=== PATIENT | female | born 1960 | race Caucasian/White ===

== ENCOUNTER 2019-08-19 16:19 | Outpatient (CLI) | payer OTHER, MEDICARE, BC, SELFPAY ==
--- NOTE | ~2019-08-19 | MM_ITS ---
EXAMINATION: MM screening [facility] BI w lesly HISTORY: Screening mammogram TECHNIQUE: Craniocaudal and mediolateral oblique 3-D tomosynthesis images were obtained and synthetic 2-D images were generated. CAD analysis was submitted and interpreted. COMPARISON: , 06/18/2017, 11/03/2015 bilateral digital screening mammogram examinations BREAST PARENCHYMAL COMPOSITION: The breasts are heterogeneously dense, which may obscure small masses . FINDINGS: There is no evidence of suspicious mass, calcification, or architectural distortion to sugg est malignancy in either breast. There has been no suspicious interval change. IMPRESSION: 1. No mammographic evidence of malignancy. 2. Recommend routine screening mammography in one year. BI-RADS Category 1: Negative Reviewed, dictated and finalized at location A.
== END 2019-08-19 16:20 | disposition home or self-care (01) ==
PROVIDERS: PCP Internal Medicine; Visit Provider Obstetrics & Gynecology
DX: Z12.31 Encounter for screening mammogram for malignant neoplasm of breast (principal)
CPT/HCPCS: 77063; 77067

== ENCOUNTER → 2019-11-11 14:55 | Outpatient (REF) | payer OTHER, MEDICARE, BC, SELFPAY | LOC: ANHLAB 14:55 | PROVIDERS: PCP Internal Medicine; Visit Provider Nurse Practitioner | DX: D49.2 Neoplasm of unspecified behavior of bone, soft tissue, and skin (principal); L57.0 Actinic keratosis | CPT/HCPCS: 88305 ==

== ENCOUNTER → 2019-11-29 13:43 | Outpatient (REF) | payer OTHER, MEDICARE, BC, SELFPAY | LOC: ANHLAB 13:43 | PROVIDERS: PCP Internal Medicine; Visit Provider Nurse Practitioner | DX: D49.2 Neoplasm of unspecified behavior of bone, soft tissue, and skin (principal) | CPT/HCPCS: 88304; 88305 ==

== ENCOUNTER 2020-02-02 01:12 | Outpatient (CLI) | payer MEDICARE, BC, SELFPAY ==
[2020-02-02 18:19] LABS: SARS-CoV-2 RNA PCR Negative
== END 2020-02-02 01:13 | disposition home or self-care (01) ==
LOC: ANHCOVIDDT 01:12
PROVIDERS: PCP Internal Medicine; Visit Provider Internal Medicine Gastroenterology
DX: Z01.812 Encounter for preprocedural laboratory examination (principal); Z20.828 Contact with and (suspected) exposure to other viral communicable diseases
CPT/HCPCS: 87635; C9803; U0003

== ENCOUNTER 2020-02-04 02:13 | Day surgery (SDC) | payer MEDICARE, SELFPAY ==
[2020-01-27 11:23] VITALS: BMI 21.9
[2020-02-04 10:32] VITALS: BP 149/69; PULSE 104; RESP 18; TEMP 36.7; O2SAT 100; BMI 22.5
--- NOTE | 2020-02-04 10:47 | WPDANESEPPF ---
Anes - Initial Pre Proc Eval Procedure: Operation Date: 02/04/20 11:45 Proposed Procedures p Esophagogastroduodenoscopy & Colonoscopy - Dirk Carter MD Date/Time: 02/04/20 10:47 Surgeon: Dirk Carter MD Pre Op Diagnosis: Reflux,Rectal Pain Patient Data Age: 59 Gender: F Height: 5 ft 4 in Weight: 59.6 kg Last Vital Signs Temp 98.0 F 02/04/20 10:32 Pulse 104 H 02/04/20 10:32 Resp 18 02/04/20 10:32 BP 149/69 H 02/04/20 10:32 Pulse Ox 100 02/04/20 10:32 Allergies Allergy/AdvReac Type Severity Reaction Status Date / Time aspirin Allergy Unknown Vomiting Verified 02/04/20 10:43 cephalexin Allergy Unknown Nausea and Verified 02/04/20 10:43 Vomiting codeine Allergy Unknown Vomiting Verified 02/04/20 10:43 morphine Allergy Unknown Vomiting Verified 02/04/20 10:43 Home Medications Medication Instructions Recorded Confirmed Type cholecalciferol (vitamin D3) 50 50 mcg PO BID cap 10/01/19 01/27/20 History mcg (2,000 unit) capsule oxycodone-acetaminophen 5 mg-325 1 tablet PO Q6H PRN 10/01/19 01/27/20 History mg tablet levothyroxine 100 mcg tablet 100 mcg PO DAILY #90 tablet 10/13/19 01/27/20 Rx methadone 5 mg tablet 5 mg PO BID tablet 11/11/19 01/27/20 History omeprazole 20 mg capsule,delayed 20 mg PO BID cap 11/11/19 01/27/20 History release topiramate 25 mg tablet 25 mg PO BID 11/11/19 01/27/20 History zolpidem 10 mg tablet 10 mg PO DAILY PRN tablet 11/19/19 01/27/20 History ondansetron HCl 4 mg tablet 4 mg PO Q6H PRN #10 tablet 12/31/19 01/27/20 Rx Patient hx anesthesia problems: none Family hx anesthesia problems: none PMFSH Past Medical History Medical History (Updated 12/31/19 @ 09:23 by Dirk Carter MD) GERD (gastroesophageal reflux disease) Intestinal metaplasia of gastric cardia LPRD (laryngopharyngeal reflux disease) Rectal pain Surgical History Surgical History History of appendectomy 1974 History of cholecystectomy 1997 History of colon resection 1998 History of hysterectomy 1985 History of spinal fusion 1998 & 1999 Hx of removal of ovary 1986 Social History Social History Smoking status: Never smoker Alcohol intake: never Gender identity (if verbalized by the patient): Female Sexual Orientation (if Verbalized by the Patient): Straight or Heterosexual Anes - Eval Final PreProcedure Day of Procedure 02/04/20 10:47 Patient weight: normal Heart: regular rate and rhythm Lungs: clear to auscultation Airway: Mallampati scale class II Neurological: alert and oriented Last oral intake: >/= 8 hours ASA classification: II Emergent: no Anesthetic plan: proceed Anesthesia type and monitoring: general GIVS and standard monitoring Informed Consent: The patient's anesthetic plan and its attendant risks and benefits were discussed with the patient/family/POA. Questions were solicited and answers provided to the satisfaction of the patient/family/POA.
[2020-02-04] MEDS: LACTATED RINGERS 1,000 ML 150 ML IV CONT (11:01)
--- NOTE | 2020-02-04 11:59 | PM.HPGS ---
History of Present Illness History of Present Illness Consent: Risks, benefits, and alternatives have been discussed and questions answered. Patient agrees to proceed with procedure. Chief complaint: Reflux,Rectal Pain Narrative: Elsy No is a 59 year old female with rectal pain, also GERD on ppi with history of gastric metaplasia Review of Systems Constitutional: Constitutional: Denies headache(s) and Denies weakness Eyes: Eyes: Denies blurry vision ENT: Reports Normal hearing present, Denies headache(s) and Denies neck pain Cardiovascular: Cardiovascular: Denies chest pain and Denies dyspnea Respiratory: Respiratory: Denies dyspnea Gastrointestinal: Gastrointestinal: Reports no additional gastrointestinal complaints Genitourinary: Genitourinary: Denies dysuria Musculoskeletal: Musculoskeletal: Denies neck pain Integumentary/Breasts: Skin/Breast: Denies dry skin Neurologic: Reports Normal hearing present, Denies headache(s) and Denies weakness Psychiatric: Psychiatric: Denies anxiety Endocrine: Endocrine: Denies change in body appearance Hematologic/Lymphatic: Hematologic/Lymphatic: Denies easy bleeding Allergic/Immunologic: Allergic/Immunologic: Denies urticaria PMFSH Past Medical History Medical History (Updated 12/31/19 @ 09:23 by Dirk Carter MD) GERD (gastroesophageal reflux disease) Intestinal metaplasia of gastric cardia LPRD (laryngopharyngeal reflux disease) Rectal pain Surgical History Surgical History History of appendectomy 1974 History of cholecystectomy 1997 History of colon resection 1998 History of hysterectomy 1984 History of spinal fusion 1998 & 1999 Hx of removal of ovary 1986 Social History Social History Smoking status: Never smoker Alcohol intake: never Gender identity (if verbalized by the patient): Female Sexual Orientation (if Verbalized by the Patient): Straight or Heterosexual Meds Home Medications and Allergies Home Medications Medication Instructions Recorded Confirmed Type cholecalciferol (vitamin D3) 50 50 mcg PO BID cap 10/01/19 02/04/20 History mcg (2,000 unit) capsule oxycodone-acetaminophen 5 mg-325 1 tablet PO Q6H PRN 10/01/19 02/04/20 History mg tablet levothyroxine 100 mcg tablet 100 mcg PO DAILY #90 tablet 10/13/19 02/04/20 Rx methadone 5 mg tablet 5 mg PO BID tablet 11/11/19 02/04/20 History omeprazole 20 mg capsule,delayed 20 mg PO BID cap 11/11/19 02/04/20 History release topiramate 25 mg tablet 25 mg PO BID 11/11/19 02/04/20 History zolpidem 10 mg tablet 10 mg PO DAILY PRN tablet 11/19/19 02/04/20 History ondansetron HCl 4 mg tablet 4 mg PO Q6H PRN #10 tablet 12/31/19 02/04/20 Rx Allergies Allergy/AdvReac Type Severity Reaction Status Date / Time aspirin Allergy Unknown Vomiting Verified 02/04/20 10:43 cephalexin Allergy Unknown Nausea and Verified 02/04/20 10:43 Vomiting codeine Allergy Unknown Vomiting Verified 02/04/20 10:43 morphine Allergy Unknown Vomiting Verified 02/04/20 10:43 Vital Signs Vital Signs - 24 hr 02/04/20 10:32 Temperature 98.0 F Pulse Rate 104 H Respiratory Rate 18 Blood Pressure 149/69 H Pulse Oximetry 100 Exam Const: General: comfortable and no acute distress HENMT: General nose exam: Normal nares present Eyes: General: appearance normal, both eyes and all related structures Neck: Neck: no JVD Resp: Auscultation: clear to auscultation bilaterally Cardio: Rate: regular rate Rhythm: regular rhythm GI: Inspection: non-distended GI Palp: Yes Soft to palpation Skin: General skin exam: normal color Neuro: General: gait normal Speech: normal speech Extrem: General: normal to inspection Psych: Mental Status: mental status grossly normal Assessment and Plan Assessment and plan (1) Intestinal metaplasia of ga
[2020-02-04 12:29] VITALS: BP 107/59; PULSE 87; RESP 20; O2SAT 100
[2020-02-04 12:39] VITALS: BP 108/60; PULSE 80; RESP 19; O2SAT 100
[2020-02-04 12:49] VITALS: BP 112/67; PULSE 85; RESP 22; O2SAT 100
== END 2020-02-04 13:15 | disposition home or self-care (01) ==
PROVIDERS: PCP Internal Medicine; Visit Provider Internal Medicine Gastroenterology
PROC: 0DJ08ZZ Inspection of Upper Intestinal Tract, Via Natural or Artificial Opening Endoscopic (ICD-10-PCS; CPT 43235; principal; 2020-02-04 11:45)
DX: K21.9 Gastro-esophageal reflux disease without esophagitis (principal); K62.89 Other specified diseases of anus and rectum; K31.89 Other diseases of stomach and duodenum; K44.9 Diaphragmatic hernia without obstruction or gangrene; K29.70 Gastritis, unspecified, without bleeding; K57.30 Diverticulosis of large intestine without perforation or abscess without bleeding; K29.50 Unspecified chronic gastritis without bleeding
CPT/HCPCS: 43239; 45378; 88305; J2001; J2704; J7120

== ENCOUNTER 2021-04-07 22:27 | Emergency (ER) | payer MEDICARE, BC, SELFPAY ==
[2021-04-07 22:30] VITALS: BP 150/83; PULSE 113; RESP 20; TEMP 35.8; O2SAT 100
[2021-04-07 22:53] VITALS: TEMP 36.7
[2021-04-07 23:08] VITALS: BP 135/84; PULSE 105; RESP 18; O2SAT 96
--- NOTE | 2021-04-07 23:08 | ED.EYEPROB ---
HPI - Eye Problem General Chief complaint: Eye Problems Stated complaint: right eye problems Time Seen by Provider: 04/07/21 22:48 History of Present Illness HPI Narrative: Patient is a 60-year-old female who presents ER with sensation of blood in her vision on the right side. Acute onset at 7:00 PM. Blood in vision has increased and she sees objects floating. No pain to the eye. Denies any trauma. No sneezing or coughing. She did not rub her eye. Patient does not take any blood thinners or antiplatelet agents. She does wear glasses. Denies flashers. She does see stuff floating in her vision. She is not missing a field of vision. Related Data Home Medications Medication Instructions Recorded Confirmed cholecalciferol (vitamin D3) 50 50 mcg PO BID cap 10/01/19 10/09/20 mcg (2,000 unit) capsule oxycodone-acetaminophen 5 mg-325 1 tablet PO Q6H PRN 10/01/19 10/09/20 mg tablet methadone 5 mg tablet 5 mg PO BID tablet 11/11/19 10/09/20 omeprazole 20 mg capsule,delayed 20 mg PO BID cap 11/11/19 10/09/20 release topiramate 25 mg tablet 50 mg PO BID tablet 03/31/20 10/09/20 Allergies Allergy/AdvReac Type Severity Reaction Status Date / Time aspirin Allergy Unknown Vomiting Verified 04/07/21 22:28 cephalexin Allergy Unknown Nausea and Verified 04/07/21 22:28 Vomiting codeine Allergy Unknown Vomiting Verified 04/07/21 22:28 morphine Allergy Unknown Vomiting Verified 04/07/21 22:28 Review of Systems Review of Systems: All systems reviewed & are unremarkable except as noted in HPI and below Constitutional: Constitutional: Denies chills and Denies fever(s) Eyes: Eyes: Reports change in vision and Denies photophobia Comments: Floaters and red vision in right eye. ENT: Denies dizziness and Denies nasal congestion Neurologic: Denies headache(s), Denies focal weakness and Denies numbness PMFSH Past Medical History Medical History GERD (gastroesophageal reflux disease) Intestinal metaplasia of gastric cardia LPRD (laryngopharyngeal reflux disease) Rectal pain Surgical History Surgical History History of appendectomy 1975 History of cholecystectomy 1997 History of colon resection 1998 History of hysterectomy 1985 History of spinal fusion 1998 & 1999 Hx of removal of ovary 1986 Family History Family History Other Diabetes mellitus Family history of cardiovascular disease Family history of malignant neoplasm Social History Social History Smoking status: Never smoker Alcohol intake: never Gender identity (if verbalized by the patient): Female Sexual Orientation (if Verbalized by the Patient): Straight or Heterosexual Exam Narrative: GENERAL: Well-appearing, well-nourished, and in no acute distress. HEAD: Normocephalic, atraumatic. EYES: PERRLA and EOMI. right side intraocular pressure of 21 mmHg. Funduscopic exam the right eye shows hemorrhage and present of clot formation over the medial aspect of the posterior eye. Normal-appearing funduscopic exam of the left eye. These are nondilated exams. Visual acuity with correction with 20/20 vision in left eye and 20/25 vision in right eye. NEURO: Alert and oriented x3. PSYCH: Normal mood and affect. Course Course Emergency Course: Discussed with ophthalmology at [facility]. They would like patient to follow-up in clinic on 04/09/2021. They have given all contact information. They also report that they would like patient to contact them tomorrow if vision is worsening so they can evaluate her in the ER at [facility]. Patient is verbalized understanding of the treatment plan. Vital Signs Vital signs: Vital Signs Temperature 96.5 F L 04/07/21 22:30 Pulse Rate 113 H 04/07/21 22:30 Respi
[2021-04-08 00:22] VITALS: BP 129/67; PULSE 99; RESP 18; O2SAT 96
== END 2021-04-08 00:25 | disposition home or self-care (01) ==
PROVIDERS: Emergency Provider Emergency Medicine; PCP Internal Medicine
DX: H43.11 Vitreous hemorrhage, right eye (principal); K21.9 Gastro-esophageal reflux disease without esophagitis; K31.A0 Gastric intestinal metaplasia, unspecified; Z98.1 Arthrodesis status
CPT/HCPCS: 99282

== ENCOUNTER 2021-05-11 08:56 | Outpatient (CLI) | payer MEDICARE, BC, SELFPAY ==
--- NOTE | ~2021-05-11 | US_ITS ---
US abdomen limited INDICATION: Right upper quadrant pain PROCEDURE: Realtime right upper abdominal ultrasound. COMPARISON: No prior studies for comparison. FINDINGS: The pancreas is normal without focal mass or pancreatic ductal dilation. Liver echotexture is normal without focal mass or intrahepatic biliary dilatation. There is normal directional flow i n the portal vein. Gallbladder is surgically absent. Common bile duct measures 4.5 mm. No sonographic Ramos's sign. IMPRESSION: 1: Unremarkable limited abdominal ultrasound postcholecystectomy Reviewed, dictated and finalized at location A. 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
== END 2021-05-11 08:57 | disposition home or self-care (01) ==
LOC: ANHIMG 08:59
PROVIDERS: PCP Internal Medicine; Visit Provider Nurse Practitioner
DX: R10.11 Right upper quadrant pain (principal)
CPT/HCPCS: 76705

== ENCOUNTER 2021-08-30 16:45 | Outpatient (CLI) | payer MEDICARE, BC, SELFPAY ==
--- NOTE | ~2021-08-30 | MM_ITS ---
EXAMINATION: MM screening [facility] BI w lesly HISTORY: Screening TECHNIQUE: Craniocaudal and mediolateral oblique 3-D tomosynthesis images were obtained and synthetic 2-D images were generated. CAD analysis was submitted and interpreted. COMPARISON: Comparison to multiple prior studies sequentially, with oldest reviewed study dated 05/09. BREAST PARENCHYMAL COMPOSITION: There are scattered areas of fibroglandular density. FINDINGS: There is no evidence of suspicious mass, calcification, or architectural distortion to sugg est malignancy in either breast. There has been no suspicious interval change. IMPRESSION: 1. No mammographic evidence of malignancy. 2. Recommend routine screening mammography in one year. BI-RADS Category 1: Negative Reviewed, dictated and finalized at location A.
--- NOTE | ~2021-08-30 | DEXA_ITS ---
Bone Density Report Name: PRISCA BECKER Age: 60 Sex: Female Ethnicity: White Date of : 1960 Indication: postmenopausal; inflammatory bowel disease; hysterectomy; Referring Provider: Dolores Reeves Study: Bone densitometry was performed. Exam Date: August 30, 2021 Accession number: [id number] Bone Density: Region BMD T-score Z-score Classification AP Spine (L1-L4) 0.962 -0.8 0.8 Normal Femoral Neck (Left) 0.736 -1.0 0.4 Normal Total Hip (Left) 0.868 -0.6 0.5 Normal Total Hip Bilateral Avg 0.923 -0.2 1.0 Normal Femoral Neck (Right) 0.729 -1.1 0.3 Osteopenia Total Hip (Right) 0.977 0.3 1.4 Normal World Health Organization criteria for BMD impression classify patients as: Normal (T-score at or above -1.0), Osteopenia (T-score between -1.0 and -2.5), or Osteoporosis (T-score at or below -2.5). 10-year Fracture Risk(1): Major Osteoporotic Fracture 7.5% Hip Fracture 0.5% Reported Risk Factors: [place] (), Neck BMD=0.729, BMI=23.2 (1) FRAX(R) Version 3.08. Fracture probability calculated for an untreated patient. Fracture probability may be lower if the patient has received treatment. Previous Exams: Region Exam Age BMD T-score BMD Change BMD Change Date g/cm2 vs Baseline vs Previous AP Spine(L1-L4) 08/30/2021 60 0.962 -0.8 -0.074(-7.2%)# -0.039(-3.9%)* 05/20/2012 51 1.001 -0.4 -0.036(-3.4%)# -0.036(-3.4%)# 05/01/2010 49 1.036 -0.1 Total Hip(Left) 08/30/2021 60 0.868 -0.6 -0.007(-0.9%)# 0.026(3.1%)# 05/24/2016 55 0.842 -0.8 -0.034(-3.8%)# 0.016(2.0%)# 05/20/2012 51 0.826 -1.0 -0.050(-5.7%)# -0.050(-5.7%)# 05/01/2010 49 0.876 -0.5 Total Hip(Right) 08/30/2021 60 0.977 0.3 0.072(8.0%)# 0.147(17.7%)# 05/24/2016 55 0.831 -0.9 -0.074(-8.2%)# -0.051(-5.8%)# 05/20/2012 51 0.882 -0.5 -0.023(-2.6%)# -0.023(-2.6%)# 05/01/2010 49 0.905 -0.3 *Denotes significance at 95% confidence level, LSC for AP Spine = 0.022 g/cm2, LSC for Total Hip = 0.027 g/cm2 Clinical Information Provided by Patient: Has used the following medications: Vitamin D, Calcium Has the following medical conditions: Inflammatory bowel diseases, Hysterectomy Patient maximum height was 64 No regular weight bearing exercise Onset of menses at age 14 Number of children 2 Impression: The patient has low bone mass, based on the Right Femoral Neck T-score. The patient has an estimated ten-year ri
== END 2021-08-30 16:46 | disposition home or self-care (01) ==
PROVIDERS: PCP Internal Medicine; Visit Provider Nurse Practitioner
DX: Z12.31 Encounter for screening mammogram for malignant neoplasm of breast (principal); Z78.0 Asymptomatic menopausal state; M85.851 Other specified disorders of bone density and structure, right thigh
CPT/HCPCS: 77063; 77067; 77080

== ENCOUNTER 2022-11-07 14:30 | Outpatient (CLI) | payer MEDICARE, BC, SELFPAY ==
--- NOTE | ~2022-11-07 | MM_ITS ---
EXAMINATION: MM screening neena BI w lesly HISTORY: Screening mammogram TECHNIQUE: Craniocaudal and mediolateral oblique 3-D tomosynthesis images were obtained and synthetic 2-D images were generated. CAD analysis was submitted and interpreted. COMPARISON: 08/26/2021, 08/19/2019, 07/29/2018 bilateral screening mammogram examinations BREAST PARENCHYMAL COMPOSITION: The breasts are heterogeneously dense, which may obscure small masses . FINDINGS: There is no evidence of suspicious mass, calcification, or architectural distortion to sugg est malignancy in either breast. There has been no suspicious interval change. IMPRESSION: 1. No mammographic evidence of malignancy. 2. Recommend routine screening mammography in one year. BI-RADS Category 1: Negative Reviewed, dictated and finalized at location A.
== END 2022-11-07 14:31 | disposition home or self-care (01) ==
PROVIDERS: PCP Internal Medicine; Visit Provider Internal Medicine
DX: Z12.31 Encounter for screening mammogram for malignant neoplasm of breast (principal)
CPT/HCPCS: 77063; 77067

== ENCOUNTER 2022-11-13 21:49 | Emergency (ER) | payer MEDICARE, BC, SELFPAY ==
[2022-11-13 21:52] VITALS: BP 151/75; PULSE 80; RESP 18; TEMP 36.3; O2SAT 100
--- NOTE | 2022-11-14 00:30 | ED.EYEPROB ---
HPI - Eye Problem General Chief complaint: Eye Problems <AUBRIE Hall Last Filed: 11/14/22 03:11> Stated complaint: R eye pain <AUBRIE Hall Last Filed: 11/14/22 03:11> Time Seen by Provider: 11/14/22 00:05 <AUBRIE Hall Last Filed: 11/14/22 03:11> Source: patient <AUBRIE Hall Last Filed: 11/14/22 03:11> Mode of arrival: ambulatory <AUBRIE Hall Filed: 11/14/22 03:11> Limitations: no limitations <AUBRIE Hall Last Filed: 11/14/22 03:11> History of Present Illness HPI Narrative: Patient is a 61-year-old female who presents to the ED with report of right eye discomfort. Patient reports she was driving around 9:30 PM when she suddenly developed a burning and stinging pain in her right eye. She also reported having increased tearing at that time, a dark anderson discharge from her eye, and a sharp pain behind her eye. She then presented to the ED. She denied any blurry vision, double vision, vision loss, visual field deficits. Patient reports around 1.5 years ago she was being monitored for potential retinal detachment with fluid ophthalmology. She did not have an actual detachment and never required surgery. She did have eye surgery (radial keratotomy) in her remote history. Patient denies any other concerns at this time. <AUBRIE Hall Last Filed: 11/14/22 03:11> Related Data Home medications: Home Medications Medication Instructions Recorded Confirmed cholecalciferol (vitamin D3) 50 50 mcg PO BID 10/01/19 08/15/22 mcg (2,000 unit) capsule oxycodone-acetaminophen 5 mg-325 1 tablet PO Q6H PRN Pain 10/01/19 08/15/22 mg tablet (Percocet) methadone 5 mg tablet 5 mg PO BID 11/11/19 08/15/22 topiramate 25 mg tablet (Topamax) 50 mg PO BID 03/31/20 08/15/22 magnesium 30 mg tablet 30 mg PO DAILY 04/26/21 08/15/22 <Neelam Dee PA-C - Last Filed: 11/14/22 03:11> Allergies/adverse reactions: Allergies Allergy/AdvReac Type Severity Reaction Status Date / Time aspirin Allergy Unknown Vomiting Verified 11/13/22 22:35 cephalexin Allergy Unknown Nausea and Verified 11/13/22 22:35 Vomiting codeine Allergy Unknown Vomiting Verified 11/13/22 22:35 morphine Allergy Unknown Vomiting Verified 11/13/22 22:35 <Neelam Dee PA-C - Last Filed: 11/14/22 03:11> Review of Systems Review of Systems: CONSTITUTIONAL: Denies fever, chills, or sweats. EYES: See HPI. NEUROLOGIC: Denies headache, numbness, or weakness. <Neelam Dee PA-C - Last Filed: 11/14/22 03:11> All systems reviewed & are unremarkable except as noted in HPI and below <Neelam Dee PA-C - Last Filed: 11/14/22 03:11> [facility] Past Medical History Medical History: Medical History GERD (gastroesophageal reflux disease) Intestinal metaplasia of gastric cardia LPRD (laryngopharyngeal reflux disease) Rectal pain Rupture of blood vessel <Neelam Dee PA-C - Last Filed: 11/14/22 03:11> Surgical History Surgical History: Surgical History History of appendectomy 1975 History of cholecystectomy 1998 History of colon resection 1999 History of hysterectomy 1985 History of spinal fusion 1998 & 1999 Hx of removal of ovary 1986 <Neelam Dee PA-C - Last Filed: 11/14/22 03:11> Family History Family History: Family History Other Diabetes mellitus Family history of cardiovascular disease Family history of malignant neoplasm <Neelam Dee PA-C - Last Filed: 11/14/22 03:11> Social History Social History: Social History Smoking status: Never smoker Second hand tobacco smoke e
[2022-11-14 01:42] VITALS: BP 136/86; PULSE 76; RESP 16; O2SAT 97
== END 2022-11-14 01:43 | disposition home or self-care (01) ==
PROVIDERS: Emergency Provider Physician Assistant; PCP Family Medicine
DX: H57.11 Ocular pain, right eye (principal); H57.89 Other specified disorders of eye and adnexa; K21.9 Gastro-esophageal reflux disease without esophagitis; K31.A0 Gastric intestinal metaplasia, unspecified; Z90.49 Acquired absence of other specified parts of digestive tract; Z90.710 Acquired absence of both cervix and uterus; Z90.721 Acquired absence of ovaries, unilateral; Z98.1 Arthrodesis status
CPT/HCPCS: 99283

== ENCOUNTER 2022-11-26 14:42 | Outpatient (CLI) | payer MEDICARE, BC, SELFPAY ==
--- NOTE | ~2022-11-26 | US_ITS ---
US renal BI 11/26/2022 15:11 Procedure: Realtime transabdominal ultrasound of the kidneys and bladder. Indication: Abnormality seen on outside MRI Comparison: MRI brain dated 10/21/2013 Findings: Renal echotexture is normal bilaterally without hydronephrosis, contour deforming mass or r enal calculus. The right kidney measures 9.7 cm and left kidney measures 9.5 cm. Bladder within norm al limits. Impression: 1: Unremarkable renal ultrasound. No stones, masses or hydronephrosis. Reviewed, dictated and finalized at location L. Impression: 1: Unremarkable renal ultrasound. No stones, masses or hydronephrosis.
== END 2022-11-26 14:43 | disposition home or self-care (01) ==
PROVIDERS: PCP Family Medicine; Visit Provider Nurse Practitioner
DX: R93.89 Abnormal findings on diagnostic imaging of other specified body structures (principal)
CPT/HCPCS: 76775

== ENCOUNTER 2023-02-18 08:00 | Outpatient (NON) | payer MEDICARE, BC, SELFPAY | END 2023-02-18 08:01 | disposition home or self-care (01) | LOC: ANHLAB 02-19 12:21 | PROVIDERS: PCP Family Medicine; Visit Provider Nurse Practitioner | DX: L82.1 Other seborrheic keratosis (principal); L57.8 Other skin changes due to chronic exposure to nonionizing radiation | CPT/HCPCS: 88305 ==

== ENCOUNTER 2023-12-26 00:29 | Day surgery (SDC) | payer MEDICARE, OTHER, SELFPAY ==
[2023-12-15 14:01] VITALS: BMI 20.4
[2023-12-26 12:18] VITALS: BP 145/76; PULSE 99; RESP 20; TEMP 36.4; O2SAT 100; BMI 20.6
--- NOTE | 2023-12-26 12:20 | PM.HPGS ---
History of Present Illness History of Present Illness Consent: Risks, benefits, and alternatives have been discussed and questions answered. Patient agrees to proceed with procedure. Chief complaint: Gastric intestinal metaplasia, gastritis Narrative: Elsy No is a 63 year old female with gastric metaplasia (last egd 2019 without metaplasia) but she has been getting egd every 3 years, currently on ppi twice daily. Review of Systems Review of Systems: All systems reviewed & are unremarkable except as noted in HPI and below PMFSH Past Medical History Medical History GERD (gastroesophageal reflux disease) Intestinal metaplasia of gastric cardia LPRD (laryngopharyngeal reflux disease) Rectal pain Rupture of blood vessel Surgical History Surgical History History of appendectomy 1974 History of cholecystectomy 1997 History of colon resection 1998 History of hysterectomy 1985 History of spinal fusion 1998 & 1999 Hx of removal of ovary 1986 Family History Family History Other Diabetes mellitus Family history of cardiovascular disease Family history of malignant neoplasm Social History Social History Smoking status: Never smoker Second hand tobacco smoke exposure: No Alcohol intake: never Substance use: never Substance use type: does not use Lack of Transportation: No Lack of Food: Never True Current Housing: I Have Housing Concerned About Future Housing: No Difficulty Paying Gas/Electric Bills: No Difficulty Paying for Meds: No Currently Unemployed: No Education: High School Diploma/GED Difficulty w/ Childcare or Family Care: No Living arrangements: other Additional living arrangements comments: with sp Gender identity (if verbalized by the patient): Female Sexual Orientation (if Verbalized by the Patient): Straight or Heterosexual Meds Home Medications and Allergies Home Medications Medication Instructions Recorded Confirmed Type cholecalciferol (vitamin D3) 50 50 mcg PO DAILY 10/01/19 12/26/23 History mcg (2,000 unit) capsule oxycodone-acetaminophen 5 mg-325 1 tablet PO Q6H PRN Pain 10/01/19 12/26/23 History mg tablet (Percocet) methadone 5 mg tablet 2.5 mg PO BID 11/11/19 12/26/23 History topiramate 25 mg tablet (Topamax) 50 mg PO BID 03/31/20 12/26/23 History magnesium 30 mg tablet 30 mg PO DAILY 04/26/21 12/26/23 History levothyroxine 100 mcg tablet See Rx Instructions .Route 03/12/23 12/26/23 Rx .COMPLEX #90 tabs omeprazole 20 mg tablet,delayed 20 mg PO BID 03/12/23 12/26/23 History release zolpidem 10 mg tablet (Ambien) 10 mg PO DAILY PRN Sleep #30 tabs 10/01/23 12/26/23 Rx semaglutide 0.25 mg or 0.5 mg (2 0.25 mg subcut WEEKLY 12/15/23 12/26/23 History mg/1.5 mL) subcutaneous pen injector Allergies Allergy/AdvReac Type Severity Reaction Status Date / Time aspirin Allergy Unknown Vomiting Verified 12/26/23 12:17 cephalexin Allergy Unknown Nausea and Verified 12/26/23 12:17 Vomiting codeine Allergy Unknown Vomiting Verified 12/26/23 12:17 morphine Allergy Unknown Hallucinati Verified 12/26/23 12:17 ng Vital Signs Vital Signs - 24 hr 12/26/23 12:18 Temperature 97.6 F Pulse Rate 99 Respiratory Rate 20 Blood Pressure 145/76 H Pulse Oximetry 100 Oxygen Delivery Room Air Exam Const: General: comfortable and no acute distress HENMT: Face/Nose/Sinus: Normal nares present Eyes: General: appearance normal, both eyes and all related structures Neck: Neck: no JVD Resp: Auscultation: clear to auscultation bilaterally Cardio: Rate: regular rate Rhythm: regular rhythm GI: Inspection: non-distended GI Palp: Yes Soft to palpation Skin: General skin exam: normal color
--- NOTE | 2023-12-26 12:24 | WPDANESEPPF ---
Anes - Initial Pre Proc Eval Procedure: Operation Date: 12/26/23 13:30 Proposed Procedures p Esophagogastroduodenoscopy - Dirk Carter MD Date/Time: 12/26/23 12:24 Surgeon: Dirk Carter MD Pre Op Diagnosis: Gastric intestinal metaplasia, gastritis Patient Data Age: 63 Gender: F Height: 1.63 m Weight: 54.6 kg Last Vital Signs Temp 97.6 F 12/26/23 12:18 Pulse 99 12/26/23 12:18 Resp 20 12/26/23 12:18 BP 145/76 H 12/26/23 12:18 Pulse Ox 100 12/26/23 12:18 O2 Del Method Room Air 12/26/23 12:18 Allergies Allergy/AdvReac Type Severity Reaction Status Date / Time aspirin Allergy Unknown Vomiting Verified 12/26/23 12:17 cephalexin Allergy Unknown Nausea and Verified 12/26/23 12:17 Vomiting codeine Allergy Unknown Vomiting Verified 12/26/23 12:17 morphine Allergy Unknown Hallucinati Verified 12/26/23 12:17 ng Home Medications Medication Instructions Recorded Confirmed Type cholecalciferol (vitamin D3) 50 50 mcg PO DAILY 10/01/19 12/26/23 History mcg (2,000 unit) capsule oxycodone-acetaminophen 5 mg-325 1 tablet PO Q6H PRN Pain 10/01/19 12/26/23 History mg tablet (Percocet) methadone 5 mg tablet 2.5 mg PO BID 11/11/19 12/26/23 History topiramate 25 mg tablet (Topamax) 50 mg PO BID 03/31/20 12/26/23 History magnesium 30 mg tablet 30 mg PO DAILY 04/26/21 12/26/23 History levothyroxine 100 mcg tablet See Rx Instructions .Route 03/12/23 12/26/23 Rx .COMPLEX #90 tabs omeprazole 20 mg tablet,delayed 20 mg PO BID 03/12/23 12/26/23 History release zolpidem 10 mg tablet (Ambien) 10 mg PO DAILY PRN Sleep #30 tabs 10/01/23 12/26/23 Rx semaglutide 0.25 mg or 0.5 mg (2 0.25 mg subcut WEEKLY 07/08/24 07/19/24 History mg/1.5 mL) subcutaneous pen injector Patient hx anesthesia problems: none Family hx anesthesia problems: none Results Review: All pre-operative results and documents have been reviewed as part of the pre-operative evaluation. [facility] Past Medical History Medical History GERD (gastroesophageal reflux disease) Intestinal metaplasia of gastric cardia LPRD (laryngopharyngeal reflux disease) Rectal pain Rupture of blood vessel Surgical History Surgical History History of appendectomy 1974 History of cholecystectomy 1997 History of colon resection 1998 History of hysterectomy 1985 History of spinal fusion 1998 & 1999 Hx of removal of ovary 1986 Family History Family History Other Diabetes mellitus Family history of cardiovascular disease Family history of malignant neoplasm Social History Social History Smoking status: Never smoker Second hand tobacco smoke exposure: No Alcohol intake: never Substance use: never Substance use type: does not use Lack of Transportation: No Lack of Food: Never True Current Housing: I Have Housing Concerned About Future Housing: No Difficulty Paying Gas/Electric Bills: No Difficulty Paying for Meds: No Currently Unemployed: No Education: High School Diploma/GED Difficulty w/ Childcare or Family Care: No Living arrangements: other Additional living arrangements comments: with sp Gender identity (if verbalized by the patient): Female Sexual Orientation (if Verbalized by the Patient): Straight or Heterosexual Anes - Eval Final PreProcedure Day of Procedure 12/26/23 12:24 Patient weight: normal Heart: regular rate and rhythm Lungs: clear to auscultation Airway: Mallampati scale class II and special considerations (Lower partial plate. ) Neurological: alert and oriented Last oral intake: >/= 8 hours ASA classification: II Emergent: no Anesthetic plan: proceed Anesthesia type and monitoring
[2023-12-26] MEDS: LACTATED RINGERS 1,000 ML 150 ML IV CONT (12:30)
[2023-12-26 13:18] VITALS: BP 139/81; PULSE 79; RESP 20; O2SAT 97
[2023-12-26 13:28] VITALS: BP 139/83; PULSE 74; RESP 20; O2SAT 100
== END 2023-12-26 13:50 | disposition home or self-care (01) ==
PROVIDERS: PCP Nurse Practitioner; Referring Provider Nurse Practitioner Family; Visit Provider Internal Medicine Gastroenterology
PROC: 0DJ08ZZ Inspection of Upper Intestinal Tract, Via Natural or Artificial Opening Endoscopic (ICD-10-PCS; CPT 43235; principal; 2023-12-26 13:30)
DX: K31.A11 Gastric intestinal metaplasia without dysplasia, involving the antrum (principal); K29.70 Gastritis, unspecified, without bleeding; K21.9 Gastro-esophageal reflux disease without esophagitis
CPT/HCPCS: 43239; 88305; J7120

== ENCOUNTER 2025-03-10 15:35 | Emergency (ER) | payer MEDICARE, OTHER, SELFPAY ==
--- OUTSIDE RECORDS SUMMARY | 2009-09-04 09:15 | XMS_ITS | Continuity of Care Document ---
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 [address] [facility] [address], [place], [place], [facility], [place]. tel:[phone] [facility], [id number] [place] [address] [address], [place], [place], [id number], [place] tel:[phone] [facility] No Information 8 Krishnasamy Sav. [address] [facility] [address], [place], [address], [place]. tel:[phone] [facility], [address], [place], [place], [id number], [place] tel:[phone] [facility] No Information 7 Dori Ridley. [address] [facility], [address], [place], [place], [id number], [place]. tel:[phone] Family History Family Member Type Diagnosis Age At Onset No Information Payers Payer name Insurance type Covered republican ID João umana(s) [employer] Plan [id number] Social History Type Description Quantity Date Captured Comments Sex Female Smoking Status No Information Chief Complaint And Reason For Visit No Information Reason For Referral Reason For Referral No Information History Of Present Illness Encounter Date Complaint History Of Prese nt Illness No Information Functional Status Date Functional Assessmen t No Information Instructions Date Instruction Additional Infor mation No Information Assessments Type Assessment Date No Information Patient Care Teams Name Effective Dates (start - stop) Status Members No Information
--- OUTSIDE RECORDS SUMMARY | 2025-03-10 15:40 | XMS_ITS | Clinical Summary ---
Author Organization [facility] [address] Address [address] [place] [address] Care Team Providers Care Senior Game Designer Name Role Phone Jeffery Lion DO Primary Care Provider [phone] Allergies Active Allergy Reactions Criticality Noted Date Comments Aspirin Nausea & Vomiting Low 10/05/2019 Codeine Nausea & Vomiting Low 10/05/2019 Morphine Hives Medium 10/05/2019 Azithromycin Unknown 07/02/2022 Medications levothyroxine (SYNTHROID) 100 mcg tablet Take 1 tablet (100 mcg total) by mouth daily 10/23/2019 Active methadone (DOLOPHINE) 5 mg tablet Take 1 tablet (5 mg total) by mouth 2 (two) times a day 11/30/2019 Active oxyCODONE-aceta minophen (PERCOCET) 5-325 mg per tablet 1 tablet as needed (rarely takes) 09/15/2019 Active Topamax 50 mg tablet Take 1 tablet (50 mg total) by mouth 2 (two) times a day 12/13/2019 Active zolpidem (AMBIEN) 10 mg tablet nightly as needed 12/05/2020 Active biotin 1 mg capsule Take by mouth 06/09/1969 Activ e cetirizine (ZyrTEC) 10 mg tablet as needed 08/27/2020 Active cholecalciferol (VITAMIN D-3) 2000 unit tablet Take by mouth daily 06/09/1969 Active magnesium oxide (MAG-OX) 400 mg (241.3 mg elemental magnesium) tablet Take by mouth daily 06/09/1969 Active metoprolol tartrate (LOPRESSOR) 25 mg immediate release tablet Take by mouth as needed 11/10/2017 Active nitroglycerin (NITROSTAT) 0.[address] under the tongue as needed 07/02/2011 Active potassium gluconate 550 mg (90 mg) tablet Take by mouth daily 06/09/1969 Active ubidecarenone/r ed yeast rice (co Q10-red yeast rice) 60-600 mg capsule CO Q-10 PLUS RED YEAST RICE CAPSULE 06/09/1969 Active methylPREDNISol one (MEDROL DOSEPACK) 4 mg Dosepack Take as directed on package 1 packet 07/01/2023 Active omeprazole (PriLOSEC) 20 mg capsuleIndicati ons:Laryngophar yngeal reflux (LPR) TAKE 1 CAPSULE BY MOUTH TWICE A DAY 180 capsule 1 12/29/2023 Active Active Problems Problem Noted Date Diagnosed Date Dysfunction of left eustachian tube 07/29/2023 Assessment & Plan (07/29/2023 11:44 AM FLOORLEADER): Symptomatically she is much better. Both ears look good now also. I am recommending no further intervention. I told her it is okay for her to get water in her ears. Follow up if she has continued problems. Ultimately would recommend a tube if this continues to be an issue. She understands. Mixed conductive and sensori neural hearing loss of left ear with restricted hearing of right ear 07/02/2022 Assessment & Plan (07/01/2023 3:12 PM FLOORLEADER): I think she probably has some middle ear fluid although her tympanogram on the left side is normal. I think that may be inaccurate. I recommended a myringotomy to drain fluid. She notes that it did help quite a bit last time we did that. She wanted to go ahead and pursue that. She did seem to note some improvement after a myringotomy was done. Also need to consider the possibility of otosclerosis. We will continue to watch this. Follow up in a month. Assessment & Plan (07/08/2022 6:26 PM FLOORLEADER): I reviewed her hearing test with her. She does have a mixed loss on the left side with a type B tympanogram. This would be consistent with a middle ear effusion. I am recommending treatment with a follow-up evaluation. Her hearing did improve after the myringotomy was performed. If problems continue I may be recommending a myringotomy tube. She understands. Left chronic serous otitis media 07/02/2022 Assessment & Plan (07/01/2023 3:13 PM FLOORLEADER): We did a myringotomy on the left side. She tolerated that well. Going to prescribe a steroid pack and have her follow up in about 4-6 weeks to see how things are going. Assessment & Plan (07/31/2022 11:21 AM FLOORLEADER): Her symptoms have resolved and her tympanic membrane has healed completely. At this point I do not feel there is any need for further intervention. She will follow- up if there are any further problems. She had no questions. Assessment & Plan (07/08/2022 6:25 PM FLOORLEADER): I talked with her about this. I talked with her about doing a myringotomy on the left is that would likely improve her hearing right away. She wanted to go ahead and pursue that. It was done without difficulty. She would a lot of mucoid secretions within the left middle ear space. She did notice improvement in her hearing afterwards. I am recommending further treatment and I am prescribing a steroid pack along with a 2 week course of Ceftin. I recommended a follow-up in about 4 weeks for a recheck. Right ear pain 12/26/2021 Laryngopharyngeal reflux (LPR) 12/26/2021 Assessment & Plan (12/25/2022 2:36 PM CDT): She continues to take the omeprazole twice a day. She becomes very symptomatic with heartburn if she does not. I recommended continuing it. Refills being given. She is goingTo follow up otherwise as needed. Assessment & Plan (12/26/2021 8:58 PM CDT): She feels like she has to take this medication twice a day because she becomes very symptomatic of substernal pain and heartburn if she does not. I recommended continuing this as well as dietary management. She understands. Had no questions. Sore throat 12/26/2021 Assessment & Plan (12/26/2021 8:59 PM CDT): Her throat looks okay. I recommended expectant treatment however if she should have the development of a severe sore throat within the next couple of days she should call here and I would prescribe an antibiotic. I do not think she has a strep infection however. It may be too early to determine that however. She understands. Immunizations Immunization Administration Dates Next Due Pfizer SARS-CoV-2 Monovalent Vaccination (12+ Yrs) PURPLE 08/24/2020,08/03/2020 Surgical History Surgery Date Site/Laterality Comments APPENDECTOMY HYSTERECTOMY BILATERAL OOPHORECTOMY CHOLECYSTECTOMY SPINAL FUSION LAPAROSCOPIC COLON RESECTION Medical History Medical History Date Comments Allergic rhinitis GERD (gastroesophageal reflux disease) Thyroid disease Ear problems HL (hearing loss) Social History Tobacco Use Types Packs/Day Years Used Date Smoking Tobacco: Never Smokeless Tobacco: Never Alcohol Use Standard Drinks/Week Comments Never 0 (1 standard drink = 0.6 oz pur e alcohol) AUDIT-C Answer Date Recorded Q1: How often do you have a drink containing alc ohol? Never 12/22/2019 Average Number of Drinks Not on file 020 Frequency of Binge Drinking Not on file 12/07 Personal Safety Answer Date Recorded Getting School Help Needed Not on file 05/26 Comments Unknown Sex and Gender Information Value Date Recorded Sex Assigned at Not on file Legal Sex Female 1:36 PM FLOORLEADER Gender Identity Not on file Sexual Orientation Not on file Obstetrics History Last Filed Vital Signs Vital Sign Reading Time Taken Comments Blood Pressure - - Pulse - - Temperature 36.9 C (98.4 F) 12/22/2019 1:39 PM CDT Respiratory Rate 18 07/29/2023 11:19 AM FLOORLEADER Oxygen Saturation - - Inhaled Oxygen Concentration - - Weight 53.5 kg (118 lb) 07/29/2023 11:19 AM FLOORLEADER Height 162.6 cm (5' 4) 07/29/2023 11:19 AM FLOORLEADER Body Mass Index 20.25 07/29/2023 11:19 AM FLOORLEADER Plan of Treatment Health Maintenance Due Date Last Done Comments Breast Cancer Screening-Mammogram 1958 Colon Cancer Screening-Colonoscopy 1958 Depression Screening 1958 Fall Risk Assessment 1958 Hepatitis C Screening 1958 Osteoporosis Screening-Bone Density Scan 1958 DTaP/Tdap/Td Vaccine (1 - Tdap) 1969 Hepatitis B Screening 1976 Pneumococcal vaccine 65+ (1 of 1 - PCV) 2008 Zoster Vaccine (1 of 2) 2008 Well Visit 65+ 11/17/2023 Covid-19 Vaccine ( - 2024- season) 2025, 08/03/2020 Influenza Vaccine (#1) 2025 Insurance MEDICARE [facility] MEDICARE [employer] [facility] [address] Care Teams Senior Game Designer Relationship Specialty Start Date End Date Jeffery Lion DO PCP - General Internal Medicine 08/23/19
--- OUTSIDE RECORDS SUMMARY | 2025-03-10 15:40 | XMS_ITS | Clinical Summary ---
Author Organization [facility] Address [address] [place] [address] Care Team Providers Care Product Accountant Name Role Phone Jeffery Lion DO Primary Care Provider [phone] Source Comments [facility],non-owned Affiliates and Associated Physician Practices is amultiple site organization consisting of ambulatory clinics and hospital sitesin [place], [place], [place] and [place]. This disclosure is being madepursuant to the Care Everywhere program and may not contain all information available regarding this patient. Last updated 18.[facility] Allergies Active Allergy Reactions Criticality Noted Date Comments Aspirin Unknown 07/17/2010 Codeine Unknown 07/17/2010 Morphine Unknown 07/17/2010 Medications * Be aware that medications may not be up to date on this document. Alwaysverify current medications with the patient. oxyCODONE-aceta minophen (ROXICET) 5-325 MG/5ML solution 0 Active methadone (DOLOPHINE) 5 MG tablet Take 5 mg by mouth 2 times daily 0 Active amoxicillin (AMOXIL) 500 MG tablet 1 Active levothyroxine (SYNTHROID) 100 MCG tablet Take 100 mcg by mouth once daily 0 Active omeprazole (PRILOSEC) 20 MG capsule TAKE 1 CAPSULE BY MOUTH TWICE A DAY 1 Active topiramate (TOPAMAX) 50 MG tablet Take 50 mg by mouth 2 times daily 0 Active zolpidem (AMBIEN) 10 MG tablet TAKE 1 TABLET BY MOUTH EVERYDAY AT BEDTIME 1 Active ezetimibe (ZETIA) 10 MG tablet ezetimibe 10 mg tablet 0 Active cetirizine (ZYRTEC) 10 MG tablet 1 Active sertraline (ZOLOFT) 25 MG tablet 1 Active Active Problems Problem Noted Date Diagnosed Date Ventricular premature depolarization 11/20/2010 Gastro-esophageal reflux disease without esophag itis 07/17/2010 Social History Tobacco Use Types Packs/Day Years Used Date Smoking Tobacco: Never Smokeless Tobacco: Never Alcohol Use Standard Drinks/Week Comments Not Currently 0 (1 standard drink = 0.6 oz pur e alcohol) Comments Unknown Sex and Gender Information Value Date Recorded Sex Assigned at Not on file Legal Sex Female 6:20 AM PALM AND BACK FORGER Gender Identity Not on file Sexual Orientation Not on file Plan of Treatment Health Maintenance Due Date Last Done Comments BONE DENSITY TESTING 1960 COLOGUARD (AGES 45-75) - COL ON CA SCREENING 1958 COLON MONITORING 1958 COLONOSCOPY - COLON CA SCREENING 1958 CT COLONOGRAPHY - COLON CA SCREENING 1958 Colorectal Cancer Screening 1958 FIT - COLON CA SCREENING 1958 FLEX SIG - COLON CA SCREENING 1958 LIPID TESTING 1958 MAMMOGRAM 1958 MEDICARE AWV 12 MONTHS 1958 HEPATITIS C SCREENING 11/11/1976 DTAP/TDAP/TD VACCINES (1 - Tdap) 1977 PNEUMOCOCCAL VACCINE 50+ (1 of 1 - PCV) 2008 ZOSTER VACCINE (1 of 2) 2008 DEPRESSION SCREENING 06/09/2024 COVID-19 VACCINE (3 - 2024-2 6 season) 2025 08/24/2020, 08/03/2020 INFLUENZA VACCINE (#1) 2025 Respiratory Syncytial Virus (RSV) Vaccine Pt: or over 60 yrs (1 - 1-dose 75+ series) 2033 HEPATITIS B VACCINE Aged Out No longe r eligible based on patient's age to complete this topic HIB VACCINE Aged Out No longer eligi ble based on patient's age to complete this topic HPV VACCINE Aged Out No longer eligi ble based on patient's age to complete this topic MENINGOCOCCAL (Group B) VACCINE SHARED DECISION-MAKING Aged Out No longer eligible based on patient's age to complete this topic MENINGOCOCCAL GROUPS A/C/Y/W VACCINE Aged Out No longer eligible b ased on patient's age to complete this topic Insurance MEDICARE [facility] RISK SELF PAY NO INSURANCE Member Subscriber Plan / Payer (Ef fective for All Dates) Name:Elsy Becker Member ID:Not on file Relation to Subscriber:Not on file Name:ELSY BECKER Subscriber ID:Not on file (Home) Address: [address] [place] [address] Payer ID:Not on file Group ID:Not on file Type:Self Pay Address: [place], [place] * Guarantor: ELSY BECKER Account Type Relation to Patient Date of Phone Billing Address Personal/Family [address] [place] [address] * Guarantor: ELSY BECKER Account Type Relation to Patient Date of Phone Billing Address Personal/Family [address] [place] [address] * Guarantor: ELSY BECKER Account Type Relation to Patient Date of Phone Billing Address Personal/Family [address] [place] [address] Care Teams Product Accountant Relationship Specialty Start Date End Date Jeffery Lion DO [address] [place], [place] [id number] PCP - General 04/09/21
--- OUTSIDE RECORDS SUMMARY | 2025-03-10 15:40 | XMS_ITS | Encounter Summary ---
Author Organization [facility] Address [address] [facility] [place] [address] Care Team Providers Care Telephone Claims Representative Name Role Phone Amisha Jeffery Suyapa ABERNATHY Primary Care Provider [phone] Encounter Details Date Type Department Care Team (Late st Contact Info) Description 07/17/2023 Lab Requisition [facility] - DermPath Lab [address] [facility], [place] [address] Dolores Hartmann DO [address] [facility] 3 [place] [address] Social History Tobacco Use Types Packs/Day Years Used Date Smoking Tobacco: Never Smokeless Tobacco: Never Alcohol Use Standard Drinks/Week Comments Not Currently 0 (1 standard drink = 0.6 oz pur e alcohol) Comments Unknown Sex and Gender Information Value Date Recorded Sex Assigned at Not on file Legal Sex Female 6:20 AM BRAKE ADJUSTER Gender Identity Not on file Sexual Orientation Not on file documented as of this encounter Plan of Treatment Not on file documented as of this encounter Procedures Procedure Name Priority Date/Time Associated Diagnosis Comments DERMATOPATHOLOGY Routine 07/17/2023 10:4 7 AM BRAKE ADJUSTER documented in this encounter Results * DERMATOPATHOLOGY (07/17/2023 10:47 AM BRAKE ADJUSTER) Case Report Dermatopathology Report Case: [id number] Authorizing Provider: Dolores Hartmann DO Collected: 07/17/2023 10:47 AM Ordering Location: [facility] DermPath Lab Received: 07/18/2023 07:57 AM Pathologist: Kallie Kim MD Specimens: A) - Skin, left lower back B) - Skin, right lateral LE C) - Skin, right thigh 4:54 PM [facility] DERMATOPATHOLOGY LABORATORY Final Diagnosis Specimen A. SKIN, left lower back: LICHEN PLANUS-LIKE KERATOSIS (BENIGN LICHENOID KERATOSIS) (L82.1) Specimen B. SKIN, right lateral LE: HYPERPLASTIC (HYPERTROPHIC) ACTINIC KERATOSIS (L57.0) (see microscopic description) Specimen C. SKIN, right thigh: ACTINIC KERATOSIS, LICHENOID (L57.0) 4:54 PM [facility] DERMATOPATHOLOGY LABORATORY at 1654 BRAKE ADJUSTER Clinical History A-C: r/o NMSC 4:54 PM [facility] DERMATOPATHOLOGY LABORATORY Gross Description Specimen A: Received is one formalin filled container labeled with the patient's name and designated left lower back. The specimen consists of a shave biopsy measuring 5x4x1 mm. Jar 0. Specimen B: Received is one formalin filled container labeled with the patient's name and designated right lateral LE. The specimen consists of a shave biopsy measuring 5x4x1 mm. Jar 0. Specimen C: Received is one formalin filled container labeled with the patient's name and designated right thigh. The specimen consists of a shave biopsy measuring 6x5x1 mm. Jar 0. 4:54 PM [facility] DERMATOPATHOLOGY LABORATORY Microscopic Description Specimen A. SKIN, left lower back: The epidermis is mildly acanthotic. There is a lichenoid infiltrate with vacuolar changes of basilar keratinocytes and scattered necrotic keratinocytes. Specimen B. SKIN, right lateral LE: There is hyperkeratosis alternating with parakeratosis. There is epidermal hyperplasia with disorderly maturation of keratinocytes with nuclear pleomorphism confined to the lower half of the epidermis. Additional deeper sections were obtained and reviewed. Mib-1 stain highlights proliferating keratinocytes within the lower half of the epidermis. Specimen C. SKIN, right thigh: There is focal parakeratosis. The lower half of the epidermis shows disorderly maturation of keratinocytes with nuclear pleomorphism. The dermis shows a band-like, chronic inflammatory infiltrate with occasional apoptotic keratinocytes and some basal vacuolar alteration. 4 4:54 PM [facility] DERMATOPATHOLOGY LABORATORY Disclaimer An external and internal positive and negative controls are appropriate for the histochemical, immunohistochemical and immunofluorescence stain(s) in this case (if any), except where stated explicitly. The performance characteristics of the stain(s) cited in this report were developed and its performance characteristic determined by the Dermatopathology Laboratory at [facility], directed by Dr. Camron Avila. These tests need not be, and therefore are not, approved by the [place] Food and Drug Administration. The tests are used for clinical purposes. Billing Codes Specimen Charges Stain Charges 53562 08897 11590 1 1 1 00392 1 4 4:54 PM BRAKE ADJUSTER DERMATOPATHOLOGY LABORATORY Embedded Images 4 4:54 PM BRAKE ADJUSTER DERMATOPATHOLOGY LABORATORY Pathology/Cytology TISSUE SPECIMEN FROM SKIN / Unknown 07/17/2023 10:47 AM BRAKE ADJUSTER 07/18/2023 7:57 AM BRAKE ADJUSTER Miscellaneous samples (specimen) TISSUE SPECIMEN FROM SKIN / Unknown 07/17/2023 10:47 AM BRAKE ADJUSTER 07/18/2023 7:57 AM BRAKE ADJUSTER Miscellaneous samples (specimen) TISSUE SPECIMEN FROM SKIN / Unknown 07/17/2023 10:47 AM BRAKE ADJUSTER 07/18/2023 7:57 AM BRAKE ADJUSTER Dolores Hartmann DO LAB - PATHOLOGY/CYTOLOGY ORDERABLES Final Result DERMATOPATHOLOGY LABORATORY [facility] - Department of Dermatology Specialized Medicine [address] [place] [address], 3rd [place] [address], [facility] [phone] documented in this encounter Visit Diagnoses Not on filedocumented in this encounter Care Teams Telephone Claims Representative Relationship Specialty Start Date End Date Jeffery Lion DO [address] [place] [address] PCP - General 04/09/21 documented as of this encounter
--- OUTSIDE RECORDS SUMMARY | 2025-03-10 15:40 | XMS_ITS | Encounter Summary ---
Author Organization [facility] Address [address] [facility] [place] [address] Care Team Providers Care Garment Liner Name Role Phone Amisha Jeffery Suyapa ABERNATHY Primary Care Provider [phone] Encounter Details Date Type Department Care Team (Late st Contact Info) Description 05/12/2024 Lab Requisition [facility] - DermPath Lab [address] [facility], [place] [address] Dolores Hartmann DO [address] [facility] 3 [place] [address] Social History Tobacco Use Types Packs/Day Years Used Date Smoking Tobacco: Never Smokeless Tobacco: Never Alcohol Use Standard Drinks/Week Comments Not Currently 0 (1 standard drink = 0.6 oz pur e alcohol) Comments Unknown Sex and Gender Information Value Date Recorded Sex Assigned at Not on file Legal Sex Female 6:[address] Gender Identity Not on file Sexual Orientation Not on file documented as of this encounter Plan of Treatment Not on file documented as of this encounter Procedures Procedure Name Priority Date/Time Associated Diagnosis Comments DERMATOPATHOLOGY Routine 05/12/2024 10:[address] documented in this encounter Results * DERMATOPATHOLOGY (05/12/2024 10:[address]) Case Report Dermatopathology Report Case: [id number] Authorizing Provider: Dolores Hartmann DO Collected: 05/12/2024 10:56 AM Ordering Location: [facility] - Received: 05/13/2024 01:34 PM DermPath Lab Pathologist: Yu Munoz MD Specimens: A) - Skin, right upper back B) - Skin, right medial eyebrow 2:37 PM [facility] DERMATOPATHOLOGY LABORATORY Final Diagnosis Specimen A. 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 SKIN, right medial eyebrow: BENIGN VERRUCOUS KERATOSIS, SUPERFICIAL PORTIONS OF (L82.1) (see microscopic description) 2:37 PM [facility] DERMATOPATHOLOGY LABORATORY at [address] Clinical History A-B: NMSC 2:37 PM [facility] DERMATOPATHOLOGY LABORATORY Gross Description Specimen A: Received is one formalin filled container labeled with the patient's name and designated right upper back. The specimen consists of a shave biopsy measuring 5x5x1 mm. Jar 0. Specimen B: Received is one formalin filled container labeled with the patient's name and designated right medial eyebrow. The specimen consists of a shave biopsy measuring 5x3x1 mm. Jar 0. 2:37 PM [facility] DERMATOPATHOLOGY LABORATORY Microscopic Description Specimen A. SKIN, right upper back: The epidermis shows parakeratosis, full thickness disorderly maturation of keratinocytes, mitoses at different levels, and dyskeratotic cells. Specimen B. SKIN, right medial eyebrow: Sections show superficial portions of hyperkeratosis, papillomatosis, hypergranulosis, and acanthosis. These histological findings can be seen in a verruca vulgaris or a seborrheic keratosis. 2:37 PM [facility] DERMATOPATHOLOGY LABORATORY Disclaimer An external and internal positive and negative controls are appropriate for the histochemical, immunohistochemical and immunofluorescence stain(s) in this case (if any), except where stated explicitly. The performance characteristics of the stain(s) cited in this report were developed and its performance characteristic determined by the Dermatopathology Laboratory at [facility], directed by Dr. Camron Avila. These tests need not be, and therefore are not, approved by the [place] Food and Drug Administration. The tests are used for clinical purposes. Billing Codes Specimen Charges Stain Charges 96529 53378 1 1 4 2:[address] DERMATOPATHOLOGY LABORATORY Embedded Images 4 2:[address] DERMATOPATHOLOGY LABORATORY Pathology/Cytology TISSUE SPECIMEN FROM SKIN / Unknown 05/12/2024 10:[address] 05/13/2024 1:[address] Miscellaneous samples (specimen) TISSUE SPECIMEN FROM SKIN / Unknown 05/12/2024 10:[address] 05/13/2024 1:[address] Dolores Hartmann DO LAB - PATHOLOGY/CYTOLOGY ORDERABLES Final Result DERMATOPATHOLOGY LABORATORY [facility] - Department of Dermatology [facility] Medicine [address] [place] [address], [address] [phone] documented in this encounter Visit Diagnoses Not on filedocumented in this encounter Care Teams Garment Liner Relationship Specialty Start Date End Date Jeffery Lion DO [address] [place], [place] [id number] PCP - General 04/09/21 documented as of this encounter
--- OUTSIDE RECORDS SUMMARY | 2025-03-10 15:41 | XMS_ITS | Encounter Summary ---
Author Organization [facility] Address [address] [facility] [place] [address] Care Team Providers Care Marine Driller Name Role Phone Amisha Jeffery Suyapa ABERNATHY Primary Care Provider [phone] Encounter Details Date Type Department Care Team (Late st Contact Info) Description 06/29/2024 Lab Requisition [facility] - DermPath Lab [address] [facility], [place] [address] Dolores Hartmann DO [address] [facility] 3 [place] [address] Social History Tobacco Use Types Packs/Day Years Used Date Smoking Tobacco: Never Smokeless Tobacco: Never Alcohol Use Standard Drinks/Week Comments Not Currently 0 (1 standard drink = 0.6 oz pur e alcohol) Comments Unknown Sex and Gender Information Value Date Recorded Sex Assigned at Not on file Legal Sex Female 6:20 AM PROFESSOR OF LANGUAGES Gender Identity Not on file Sexual Orientation Not on file documented as of this encounter Plan of Treatment Not on file documented as of this encounter Procedures Procedure Name Priority Date/Time Associated Diagnosis Comments DERMATOPATHOLOGY Routine 06/29/2024 11:2 9 AM PROFESSOR OF LANGUAGES documented in this encounter Results * DERMATOPATHOLOGY (06/29/2024 11:29 AM PROFESSOR OF LANGUAGES) Case Report Dermatopathology Report Case: [id number] Authorizing Provider: Dolores Hartmann DO Collected: 06/29/2024 11:29 AM Ordering Location: [facility] - Received: 06/30/2024 06:34 AM DermPath Lab Pathologist: Tiffany Avila MD Specimen: Skin, right upper back 1:55 PM [facility] DERMATOPATHOLOGY LABORATORY Final Diagnosis Specimen A. SKIN, right upper back: DERMAL SCAR RESIDUAL SQUAMOUS CELL CARCINOMA NOT IDENTIFIED (L90.5) 1:55 PM [facility] DERMATOPATHOLOGY LABORATORY at 135[address] PROFESSOR OF LANGUAGES Clinical History Bx proven SCCIS Check margins/prior biopsy 1:55 PM [facility] DERMATOPATHOLOGY LABORATORY Gross Description Specimen A: Received is one formalin filled container labeled with the patient's name and designated right upper back. The specimen consists of a non-oriented ellipse of skin measuring 57v12f6 mm. The epidermal surface is unremarkable. The margin is inked green. The 12 o'clock and 6 o'clock tips are submitted in cassette 1. The remainder of the ellipse is serially sectioned and submitted in cassette 2-3. Jar 0. 1:55 PM [facility] DERMATOPATHOLOGY LABORATORY Microscopic Description Specimen A. SKIN, right upper back: There are fibroblasts and collagen bundles oriented parallel to the skin surface. There are elongated blood vessels, some of which are oriented perpendicular to the skin surface. No residual squamous cell carcinoma is identified. 1:55 PM [facility] DERMATOPATHOLOGY LABORATORY Disclaimer An external and internal positive and negative controls are appropriate for the histochemical, immunohistochemical and immunofluorescence stain(s) in this case (if any), except where stated explicitly. The performance characteristics of the stain(s) cited in this report were developed and its performance characteristic determined by the Dermatopathology Laboratory at [facility], directed by Dr. Camron Avila. These tests need not be, and therefore are not, approved by the [place] Food and Drug Administration. The tests are used for clinical purposes. Billing Codes Specimen Charges Stain Charges 37813 1 1:55 PM [facility] DERMATOPATHOLOGY LABORATORY Embedded Images 1:55 PM [facility] DERMATOPATHOLOGY LABORATORY Pathology/Cytolo gy TISSUE SPECIMEN FROM SKIN / Unknown 06/29/2024 11:29 AM PROFESSOR OF LANGUAGES 06/30/2024 6:34 AM PROFESSOR OF LANGUAGES us Dolores Hartmann DO LAB - PATHOLOGY/CYTOLOGY ORDERABLES Final Result DERMATOPATHOLOGY LABORATORY [facility] - Department of Dermatology [facility] Specialized Medicine [address] [place] [address], [address] [phone] documented in this encounter Visit Diagnoses Not on filedocumented in this encounter Care Teams Marine Driller Relationship Specialty Start Date End Date Jeffery Lion DO [address] [place] [address] PCP - General 04/09/21 documented as of this encounter
--- OUTSIDE RECORDS SUMMARY | 2025-03-10 15:41 | XMS_ITS | Encounter Summary ---
Author Organization [facility] Address [address] [place] [address] Care Team Providers Care Data Administrator Name Role Phone AmishaJeffery hoff Suyapa ABERNATHY Primary Care Provider [phone] Encounter Details Date Type Department Care Team (Late st Contact Info) Description 08/03/2024 Lab Requisition [facility] - DermPath Lab [address] [facility], [place] [address] Teetee Boswell MD [address] [facility] 3 [place] [address] Social History Tobacco Use Types Packs/Day Years Used Date Smoking Tobacco: Never Smokeless Tobacco: Never Alcohol Use Standard Drinks/Week Comments Not Currently 0 (1 standard drink = 0.6 oz pur e alcohol) Comments Unknown Sex and Gender Information Value Date Recorded Sex Assigned at Not on file Legal Sex Female 6:20 AM SMOKE JUMPER SUPERVISOR Gender Identity Not on file Sexual Orientation Not on file documented as of this encounter Plan of Treatment Not on file documented as of this encounter Procedures Procedure Name Priority Date/Time Associated Diagnosis Comments DERMATOPATHOLOGY Routine 08/03/2024 1:33 PM SMOKE JUMPER SUPERVISOR documented in this encounter Results * DERMATOPATHOLOGY (08/03/2024 1:33 PM SMOKE JUMPER SUPERVISOR) Case Report Dermatopathology Report Case: [id number] Authorizing Provider: Teetee Boswell MD Collected: 08/03/2024 01:33 PM Ordering Location: [facility] - Received: 08/05/2024 07:18 AM DermPath Lab Pathologist: Oumou Munoz MD Specimen: Skin, right lat knee 1:45 PM [facility] DERMATOPATHOLOGY LABORATORY Final Diagnosis Specimen A. SKIN, right lat knee: NON-INFLAMMATORY PURPURA (D69.2) (see microscopic description and comment) 1:45 PM [facility] DERMATOPATHOLOGY LABORATORY at 1344 SMOKE JUMPER SUPERVISOR Clinical History R/O Angioma vs Purpura/Ecchymosis 1:45 PM [facility] DERMATOPATHOLOGY LABORATORY Gross Description Specimen A: Received is one formalin filled container labeled with the patient's name and designated right lat knee. The specimen consists of a shave biopsy measuring 7x6x1 mm. Jar 0. 1:45 PM [facility] DERMATOPATHOLOGY LABORATORY Microscopic Description Specimen A. SKIN, right lat knee: Sections show extravasation of red blood cells into the dermis from small cutaneous vessels. No associated inflammation is present in the vessel molina. COMMENT: These histological findings are consistent with a non-inflammatory purpura, which include idiopathic thrombocytopenic purpura, senile purpura, psychogenic purpura, traumatic purpura, and drug purpuras. 1:45 PM [facility] DERMATOPATHOLOGY LABORATORY Disclaimer An external and internal positive and negative controls are appropriate for the histochemical, immunohistochemical and immunofluorescence stain(s) in this case (if any), except where stated explicitly. The performance characteristics of the stain(s) cited in this report were developed and its performance characteristic determined by the Dermatopathology Laboratory at [facility], directed by Dr. Camron Avila. These tests need not be, and therefore are not, approved by the [place] Food and Drug Administration. The tests are used for clinical purposes. Billing Codes Specimen Charges Stain Charges 41223 1 1:45 PM [facility] DERMATOPATHOLOGY LABORATORY Embedded Images 1:45 PM [facility] DERMATOPATHOLOGY LABORATORY Pathology/Cytolo gy TISSUE SPECIMEN FROM SKIN / Unknown 08/03/2024 1:33 PM SMOKE JUMPER SUPERVISOR 08/05/2024 7:18 AM SMOKE JUMPER SUPERVISOR us Teetee Boswell MD LAB - PATHOLOGY/CYTOLOGY OR DERABLES Final Result DERMATOPATHOLOGY LABORATORY [facility] - Department of Dermatology [facility] Medicine [address] [place] [address], [address] [phone] documented in this encounter Visit Diagnoses Not on filedocumented in this encounter Care Teams Data Administrator Relationship Specialty Start Date End Date Jeffery Lion DO [address] [place], [place] [id number] PCP - General 04/09/21 documented as of this encounter
--- OUTSIDE RECORDS SUMMARY | 2025-03-10 15:41 | XMS_ITS | Encounter Summary ---
Author Organization [facility] Address [address] [facility] [place] [address] Care Team Providers Care Band Head Saw Operator Name Role Phone Amisha Jeffery Suyapa ABERNATHY Primary Care Provider [phone] Encounter Details Date Type Department Care Team (Late st Contact Info) Description 12/02/2024 Lab Requisition [facility] - DermPath Lab [address] [facility], [place] [address] Dolores Hartmann DO [address] [facility] 3 [place] [address] Social History Tobacco Use Types Packs/Day Years Used Date Smoking Tobacco: Never Smokeless Tobacco: Never Alcohol Use Standard Drinks/Week Comments Not Currently 0 (1 standard drink = 0.6 oz pur e alcohol) Comments Unknown Sex and Gender Information Value Date Recorded Sex Assigned at Not on file Legal Sex Female 6:20 AM LOGISTICS INTERN Gender Identity Not on file Sexual Orientation Not on file documented as of this encounter Plan of Treatment Not on file documented as of this encounter Procedures Procedure Name Priority Date/Time Associated Diagnosis Comments DERMATOPATHOLOGY Routine 12/02/2024 12:5 5 PM CDT documented in this encounter Results * DERMATOPATHOLOGY (12/02/2024 12:55 PM CDT) Case Report Dermatopathology Report Case: [id number] Authorizing Provider: Dolores Hartmann DO Collected: 12/02/2024 12:55 PM Ordering Location: [facility] - Received: 12/06/2024 06:59 AM DermPath Lab Pathologist: Tiffany Avila MD Specimen: Skin, left chest 2:50 PM CDT DERMATOPATHOLOGY LABORATORY Final Diagnosis Specimen A. SKIN, left chest: LICHEN PLANUS-LIKE KERATOSIS (BENIGN LICHENOID KERATOSIS) (L82.1) 2:50 PM CDT DERMATOPATHOLOGY LABORATORY at 1450 CDT Clinical History R/O NMSC 2:50 PM CDT DERMATOPATHOLOGY LABORATORY Gross Description Specimen A: Received is one formalin filled container labeled with the patient's name and designated left chest. The specimen consists of a shave biopsy measuring 5x4x1 mm. Jar 0. 2:50 PM CDT DERMATOPATHOLOGY LABORATORY Microscopic Description Specimen A. SKIN, left chest: The epidermis is mildly acanthotic. There is a lichenoid infiltrate with vacuolar changes of basilar keratinocytes and scattered necrotic keratinocytes. 2:50 PM CDT DERMATOPATHOLOGY LABORATORY Disclaimer An external and internal positive and negative controls are appropriate for the histochemical, immunohistochemical and immunofluorescence stain(s) in this case (if any), except where stated explicitly. The performance characteristics of the stain(s) cited in this report were developed and its performance characteristic determined by the Dermatopathology Laboratory at [facility], directed by Dr. Camron Avila. These tests need not be, and therefore are not, approved by the [place] Food and Drug Administration. The tests are used for clinical purposes. Billing Codes Specimen Charges Stain Charges 09416 1 2:50 PM CDT DERMATOPATHOLOGY LABORATORY Embedded Images 2:50 PM CDT DERMATOPATHOLOGY LABORATORY Pathology/Cytolo gy TISSUE SPECIMEN FROM SKIN / Unknown 12/02/2024 12:55 PM CDT 12/06/2024 6:59 AM CDT us Dolores Hartmann DO LAB - PATHOLOGY/CYTOLOGY ORDERABLES Final Result DERMATOPATHOLOGY LABORATORY [facility] - Department of Dermatology [facility] Specialized Medicine [address] [place] [address], [address] [phone] documented in this encounter Visit Diagnoses Not on filedocumented in this encounter Care Teams Band Head Saw Operator Relationship Specialty Start Date End Date Jeffery Lion DO [address] [place], [place] [phone] PCP - General 04/09/21 documented as of this encounter
[2025-03-10 15:43] VITALS: BP 136/82; PULSE 93; RESP 18; TEMP 36.6; O2SAT 100
--- NOTE | 2025-03-10 15:59 | ED.URI ---
HPI - URI/Sore Throat General Chief Complaint: Upper Respiratory Infection Stated Complaint: URI Time Seen by Provider: 03/10/25 15:49 Source: patient and RN notes reviewed Mode of arrival: ambulatory Limitations: no limitations History of Present Illness HPI Narrative: Patient presents today with a 2 week history of sore throat, frontal headache chills, nausea, nasal congestion and pressure. Symptoms are worse at night when lying down. Describes the pain as burning. She has tried NyQuil, Sudafed, and Tylenol with minimal relief and currently rates her pain 4/10. Related Data Home Medications ?Medication ?Instructions ?Recorded ?Confirmed ?Last Taken ?Type cholecalciferol (vitamin D3) 50 50 mcg PO DAILY 10/01/19 11/11/24 06/23/24 History mcg (2,000 unit) capsule methadone 5 mg tablet 2.5 mg PO BID 11/11/19 11/11/24 06/23/24 History topiramate 25 mg tablet (Topamax) 50 mg PO BID 03/31/20 11/11/24 06/23/24 History magnesium 30 mg tablet 30 mg PO DAILY 04/26/21 11/11/24 06/23/24 History semaglutide 0.25 mg or 0.5 mg (2 0.25 mg subcut WEEKLY 12/15/23 11/11/24 06/23/24 History mg/1.5 mL) subcutaneous pen injector Allergies Allergy/AdvReac Type Severity Reaction Status Date / Time morphine Allergy Unknown Hallucinati Verified 03/10/25 15:44 ng [id number] Reductase AdvReac Severe Muscle Pain Verified 03/10/25 15:44 Inhibitor aspirin AdvReac Unknown Vomiting Verified 03/10/25 15:44 cephalexin AdvReac Unknown Nausea and Verified 03/10/25 15:44 Vomiting codeine AdvReac Unknown Vomiting Verified 03/10/25 15:44 [facility] Past Medical History Medical History BMI 21.0-21.9, adult Rupture of blood vessel Intestinal metaplasia of gastric cardia LPRD (laryngopharyngeal reflux disease) GERD (gastroesophageal reflux disease) Rectal pain Surgical History Surgical History History of cholecystectomy 1998 History of colon resection 1998 History of spinal fusion 1998 & 1999 Hx of removal of ovary 1986 History of hysterectomy 1984 History of appendectomy 1974 Family History Family History Father Diabetes mellitus Mother Tobacco abuse COVID-19 Sibling No problems noted. Other Family history of cardiovascular disease Family history of malignant neoplasm Social History Social History Smoking status: Never smoker Second hand tobacco smoke exposure: Yes Alcohol intake: never Substance use: never Substance use type: does not use Do You Feel Safe in your Home?: Yes Lack of Transportation: No Lack of Food: Never True Current Housing: I Have Housing Concerned About Future Housing: No Difficulty Paying Gas/Electric Bills: No Difficulty Paying for Meds: No Currently Unemployed: No Education: High School Diploma/GED Difficulty w/ Childcare or Family Care: No Living arrangements: with family Occupation/Education: retired Additional occupation/education comments: [employer] Gender identity (if verbalized by the patient): Female Sexual Orientation (if Verbalized by the Patient): Straight or Heterosexual Spiritual care concerns: Yes Comments At time of signature, I have reviewed and agree with nursing past medical, surgical, social and family history unless otherwise noted. Please see nursing chart for further information. There is no relevant family history pertinent to the presenting complaint Exam Narrative: GENERAL: Mildly ill-appearing, well-nourished, and in no acute distress. HEAD: Normocephalic, atraumatic. EYES: EOMI. No redness or drainage. Conjunctivae normal. ENT: Mucous membranes pink and moist. Nares congested. Bilateral frontal and maxillary sinus tenderness. No rhinorrhea. TMs normal bilaterally. Throat mildly erythematous without edema or exudate. Uvula midline. NECK: Normal AROM. Supple. Left anterior cervical chain lymphadenopathy. CHEST: No respiratory distress. Clear to auscultation. HEART: Regular rate and rhythm. No murmur appreciated. EXTREMITIES: Normal range of motion. No edema. SKIN: Warm, dry, no rash. Capillary refill normal. Normal skin turgor. NEURO: No focal deficits. Alert and oriented x3. Gait steady. PSYCH: Normal affect. No signs of depression or anxiety. Course Course Level of Care: Express Care Visit Vital Signs Vital signs: Vital Signs Temperature 97.9 F 03/10/25 15:43 Pulse Rate 93 03/10/25 15:43 Respiratory Rate 18 03/10/25 15:43 Blood Pressure 136/82 03/10/25 15:43 Pulse Oximetry 100 03/10/25 15:43 Oxygen Delivery Room Air 03/10/25 15:43 Temperature 97.9 F 03/10/25 15:43 Pulse Rate 93 03/10/25 15:43 Respiratory Rate 18 03/10/25 15:43 Blood Pressure 136/82 03/10/25 15:43 Pulse Oximetry 100 03/10/25 15:43 Oxygen Delivery Room Air 03/10/25 15:43 Reviewed MDM - URI/Sore Throat MDM Narrative Medical decision making narrative: 64-year-old female patient presents today with a 2 week history of sore throat, frontal headache chills, nausea, nasal congestion and pressure. Symptoms are worse at night when lying down. OTC medication without improvement. Upon exam, patient has nasal congestion with frontal and maxillary sinus tenderness as well as mild erythema in the throat. Due to sinus symptoms, exam, and duration of illness, patient will be treated with amoxicillin for presumed bacterial sinusitis. Recommend starting an intranasal steroid such as Flonase as well. Patient agrees with plan. Vital signs stable. Anticipatory guidance given. Differential Diagnosis Differential diagnosis: Likely upper respiratory infection, otitis media, sinusitis, viral infection and pharyngitis Critical Care Time Critical Care Time Critical Care Time: No Discharge Plan Discharge Clinical Impression: Sinusitis Qualifiers: Sinusitis location: unspecified location Chronicity: acute Recurrence: non-recurrent Qualified Code(s): J01.90 - Acute sinusitis, unspecified Patient Disposition: Home Condition: Stable Instructions: Antibiotic Form, Sinusitis (ED) Additional Instructions: Please take the amoxicillin as prescribed until gone. Consider starting an intranasal steroid such as Flonase. Take Tylenol or ibuprofen for discomfort, if able. Follow-up with your PCP in 3 days if symptoms are not improving. Your blood pressure was elevated above 120/80 today at Urgent Care. This puts you above the threshold for follow up. Please schedule a followup visit with your personal physician as soon as possible, for further evaluation and treatment. Even blood pressure exceeding 120/80 may indicate pre-hypertension. Patient Language: Chinese Prescriptions: New amoxicillin 875 mg tablet 875 mg PO Q12H 7 Days Qty: 14 0RF No Action cholecalciferol (vitamin D3) 50 mcg (2,000 unit) capsule 50 mcg PO DAILY methadone 5 mg tablet 2.5 mg PO BID zolpidem [Ambien] 10 mg tablet 10 mg PO DAILY PRN (Reason: Sleep) Qty: 30 1RF topiramate [Topamax] 25 mg tablet 50 mg PO BID magnesium 30 mg tablet 30 mg PO DAILY semaglutide 0.25 mg or 0.5 mg(2 mg/1.5 mL) Pen Injector 0.25 mg SUBCUT WEEKLY levothyroxine 100 mcg tablet See Rx Instructions .ROUTE .COMPLEX Qty: 90 1RF Dose Instruction: TAKE 1 TABLET BY MOUTH EVERY DAY Rx Instructions: TAKE 1 TABLET BY MOUTH EVERY DAY pantoprazole 40 mg tablet,delayed release (DR/EC) See Rx Instructions .ROUTE .COMPLEX Qty: 180 1RF Dose Instruction: TAKE 1 TABLET BY MOUTH TWICE A DAY FOR GERD Rx Instructions: TAKE 1 TABLET BY MOUTH TWICE A DAY FOR GERD Follow-up/Referrals: Jeffery Lion DO [Primary Care Provider, Internal Medicine] Time of Disposition: 16:04
== END 2025-03-10 16:07 | disposition home or self-care (01) ==
PROVIDERS: Emergency Provider Nurse Practitioner; PCP Internal Medicine
DX: J01.90 Acute sinusitis, unspecified (principal)
CPT/HCPCS: 99213; G0463